=== PATIENT | male | born 1975 | race Caucasian/White ===

== ENCOUNTER 2016-06-19 14:07 | Emergency (ER) | payer MEDICAID ==
[~2016-06-19] VITALS: Ht 185.4 cm; Wt 116.1 kg
[2016-06-19 14:07] VITALS: BP 165/97; PULSE 103; RESP 18; TEMP 97.2; O2SAT 96
--- NOTE | 2016-06-19 14:07 | NUR ---
BROUGHT BACK TO BED #4 AND TRIAGED. REPORT GIVEN TO TOMEKA
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
--- NOTE | 2016-06-19 15:20 | NUR ---
ER at bedside examining patient.
--- NOTE | 2016-06-19 16:00 | NUR ---
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
[2016-06-19 16:10] VITALS: BP 160/92; PULSE 88; RESP 18; TEMP 97.2; O2SAT 97
--- NOTE | 2016-06-19 16:10 | NUR ---
Patient given written and verbal discharge instructions and verbalizes understanding. ER MD discussed with patient the results and treatment provided. Given copies of tests performed in ER. Patient in stable condition. ID arm band removed. Rx of [place] given. Patient educated on pain management and to follow up with PMD. Pain Scale 4. Opportunity for questions provided and answered.
== END 2016-06-19 16:10 | disposition home or self-care (01) ==
LOC: SED 14:07
DX: M54.6 Pain in thoracic spine (principal); G89.29 Other chronic pain; F17.200 Nicotine dependence, unspecified, uncomplicated
CPT/HCPCS: 99283

== ENCOUNTER 2016-11-22 03:00 | Emergency (ER) | payer MEDICAID ==
[~2016-11-22] VITALS: Ht 185.4 cm; Wt 111.1 kg
[2016-11-22 03:05] VITALS: BP_SYST 143
[2016-11-22] MEDS ORDERED: KETOROLAC TROMETHAMINE 60 MG/2 ML VIAL IM ONE (03:30)
[2016-11-22 04:10] VITALS: BP_SYST 143
== END 2016-11-22 04:10 | disposition home or self-care (01) ==
LOC: SED 03:00
DX: G89.29 Other chronic pain (principal); M54.5 Low back pain; F17.200 Nicotine dependence, unspecified, uncomplicated
CPT/HCPCS: 72100; 96372; 99284; J1885

== ENCOUNTER 2017-02-14 19:31 | Emergency (ER) | payer MEDICAID ==
[~2017-02-14] VITALS: Ht 185.4 cm; Wt 113.4 kg
[2017-02-14 19:37] VITALS: BP_SYST 127
[2017-02-14] MEDS ORDERED: KETOROLAC TROMETHAMINE 60 MG/2 ML VIAL IM ONE (20:45)
[2017-02-14 21:05] VITALS: BP_SYST 129
== END 2017-02-14 21:05 | disposition home or self-care (01) ==
LOC: SED 19:31
DX: S62.396A Other fracture of fifth metacarpal bone, right hand, initial encounter for closed fracture (principal); X58.XXXA Exposure to other specified factors, initial encounter; Y93.89 Activity, other specified; Y92.89 Other specified places as the place of occurrence of the external cause; Y99.8 Other external cause status
CPT/HCPCS: 29125; 73130; 96372; 99284; J1885